=== PATIENT | male | born 1980 | race Caucasian/White ===

== ENCOUNTER 2018-08-11 20:52 | Emergency (ER) | payer SELFPAY ==
[2018-08-11] MEDS ORDERED: HYDROCODONE/APAP 7.5/325 MG TAB ONE (21:51)
--- NOTE | 2018-08-11 22:03 | RAD REPORT ---
EXAM DESCRIPTION: RAD - Wrist Right 3 View - 08/11/2018 9:35 pm CLINICAL HISTORY: Two day history of right wrist pain, no trauma history indicated COMPARISON: None. FINDINGS: No gross fracture deformity is seen. A amorphous shaped bone or soft tissue calcifications note along the dorsal margin of the wrist between the lunate and triquetrum bones. This appears to b e reactive calcification rather than an avulsion from the carpal bone. No calcifications in the trian gular fibrocartilage. There is no dislocation or periosteal reaction noted. No air or foreign body in the soft tissues. IMPRESSION: Calcifications along the dorsum of the wrist near the lunate and triquetrum bones noted. This appears to be reactive soft tissue calcification rather than bone avulsion. Findings are likely secondary to inflammatory degenerative process.
--- NOTE | 2018-08-11 22:33 | ER ---
Nurse's Notes [facility] Name: Nabila Fisher Age: 38 yrs Sex: Male : 1980 Arrival Date: 08/11/2018 Time: 20:57 Bed 9 Private MD: Diagnosis: Pain in right wrist Presentation: 08/11 20:58 Presenting complaint: Patient states: right wrist pain X2 days [employer]. Transition of care: ak1 patient was not received from another setting of care. Onset of symptoms is unknown. Risk Assessment: Do you want to hurt yourself or someone else? Patient reports no desire to harm self or others. Initial Sepsis Screen: Does the patient meet any 2 criteria? No. Patient's initial sepsis screen is negative. Does the patient have a suspected source of infection? No. Patient's initial sepsis screen is negative. Care prior to arrival: None. 20:58 Method Of Arrival: Ambulatory ak1 20:58 Acuity: KRISTEN 4 ak1 Triage Assessment: 20:59 General: Appears in no apparent distress. ak1 Historical: - Allergies: 20:59 No Known Allergies; ak1 - Home Meds: 20:59 None [Active]; ak1 - PMHx: 20:59 polycystic kidney; ak1 - PSHx: 20:59 None; ak1 - Immunization history:: Adult Immunizations unknown. - Social history:: Smoking status: Patient/guardian denies using tobacco. - Ebola Screening: : No symptoms or risks identified at this time. Screenin:00 Abuse screen: none noted. Nutritional screening: No deficits noted. Tuberculosis jl3 screening: No symptoms or risk factors identified. Fall Risk None identified. Assessment: 21:06 General: Appears uncomfortable, slender, Behavior is calm, cooperative, Reports Pt c/o jl3 pain to R. wrist >2 days. Denies trauma to wrist. States pain is 8/10, getting worse. Some inflammation noted to medial wrist. 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 Pain: Complains of pain in lateral aspect of right wrist, medial aspect of right wrist, dorsal aspect of right wrist, heel of right hand and palmar aspect of right wrist Pain currently is 8 out of 10 on a pain scale. Quality of pain is described as sharp, shooting. Cardiovascular: No deficits noted. Respiratory: No deficits noted. GI: No deficits noted. : No deficits noted. EENT: No deficits noted. Musculoskeletal: Reports pain in right hand. Vital Signs: 20:59 BP 151 / 85; Pulse 88; Resp 18; Temp 98; Pulse Ox 98% on R/A; Weight 63.5 kg (R); ak1 Height 5 ft. 8 in. (172.72 cm) (R); Pain 10/10; 23:01 BP 144 / 76; Pulse 80; Resp 16; Pulse Ox 99% ; Pain 0/10; jl3 20:59 Body Mass Index 21.29 (63.50 kg, 172.72 cm) ak1 ED Course: 20:57 Patient arrived in ED. ag3 20:58 Triage completed. ak1 20:59 Arm band placed on Patient placed in an exam room, on a stretcher, Patient notified of ak1 wait time. 21:02 Naomy Roa FNP-C is [facility]. kb 21:02 David Velásquez MD is Attending Physician. kb 21:03 Baljinder Wade, RN is Primary Nurse. jl3 21:30 X-ray completed. Portable x-ray completed in exam room. Patient tolerated procedure ag1 well. 21:33 Wrist Right 3 View XRAY In Process Unspecified. EDMS 23:01 Patient has correct armband on for positive identification. jl3 23:01 No provider procedures requiring assistance completed. Patient did not have IV access jl3 during this emergency room visit. Administered Medications: 21:43 Drug: [place] (7.5 mg-325 mg) 1 tabs Route: PO; jl3 22:03 Follow up: Response: No adverse reaction; Pain is decreased jl3 Outcome: 22:33 Discharge ordered by . kb 23:01 Discharged to home ambulatory, with family. jl3 23:01 Condition: stable 23:01 Discharge instructions given to patient, family, Prescriptions given X 2. 23:02 Patient left the ED. jl3 Signatures: Dispatcher [employer] EDMS Naomy Roa FNP-C FNP-Ckb Lowman, John, NURIS RN jl3 Janet Moore RN RN ak1 Dionna Gavin ag1 Yari Vela ag3
--- NOTE | 2018-08-11 22:34 | EDPHYS ---
Physician Documentation [facility] Name: Nabila Fisher Age: 38 yrs Sex: Male : 1980 Arrival Date: 08/11/2018 Time: 20:57 Bed 9 Private MD: ED Physician David Velásquez HPI: 08/11 22:29 This 38 yrs old Male presents to ER via Ambulatory with complaints of Wrist kb Pain. 22:29 The patient or guardian reports pain, swelling. The complaints affect the right wrist kb diffusely. Context: The problem was sustained at home, resulted from an unknown cause. Onset: The symptoms/episode began/occurred 2 day(s) ago. Modifying factors: The symptoms are alleviated by nothing, the symptoms are aggravated by nothing. Associated signs and symptoms: The patient has no apparent associated signs or symptoms. The patient has not experienced similar symptoms in the past. The patient has not recently seen a physician. Historical: - Allergies: 20:59 No Known Allergies; ak1 - Home Meds: 20:59 None [Active]; ak1 - PMHx: 20:59 polycystic kidney; ak1 - PSHx: 20:59 None; ak1 - Immunization history:: Adult Immunizations unknown. - Social history:: Smoking status: Patient/guardian denies using tobacco. - Ebola Screening: : No symptoms or risks identified at this time. ROS: 22:28 Constitutional: Negative for fever, chills, and weight loss, Cardiovascular: Negative kb for chest pain, palpitations, and edema, Respiratory: Negative for shortness of breath, cough, wheezing, and pleuritic chest pain, Abdomen/GI: Negative for abdominal pain, nausea, vomiting, diarrhea, and constipation, Skin: Negative for injury, rash, and discoloration, Neuro: Negative for headache, weakness, numbness, tingling, and seizure. 22:28 MS/extremity: Positive for pain, swelling, of the right wrist and right hand. Exam: 22:28 Constitutional: This is a well developed, well nourished patient who is awake, alert, kb and in no acute distress. Head/Face: Normocephalic, atraumatic. Chest/axilla: Normal chest wall appearance and motion. Nontender with no deformity. No lesions are appreciated. Cardiovascular: Regular rate and rhythm with a normal S1 and S2. No gallops, murmurs, or rubs. Normal PMI, no JVD. No pulse deficits. Respiratory: Lungs have equal breath sounds bilaterally, clear to auscultation and percussion. No rales, rhonchi or wheezes noted. No increased work of breathing, no retractions or nasal flaring. Abdomen/GI: Soft, non-tender, with normal bowel sounds. No distension or tympany. No guarding or rebound. No evidence of tenderness throughout. Back: No spinal tenderness. No costovertebral tenderness. Full range of motion. Skin: Warm, dry with normal turgor. Normal color with no rashes, no lesions, and no evidence of cellulitis. Neuro: Awake and alert, GCS 15, oriented to person, place, time, and situation. Cranial nerves II-XII grossly intact. Motor strength 5/5 in all extremities. Sensory grossly intact. Cerebellar exam normal. Normal gait. 22:28 Musculoskeletal/extremity: Extremities: grossly normal except: noted in the right wrist and right hand: pain, swelling, ROM: limited active range of motion due to pain, Circulation is intact in all extremities. Sensation intact. Vital Signs: 20:59 BP 151 / 85; Pulse 88; Resp 18; Temp 98; Pulse Ox 98% on R/A; Weight 63.5 kg (R); ak1 Height 5 ft. 8 in. (172.72 cm) (R); Pain 10/10; 23:01 BP 144 / 76; Pulse 80; Resp 16; Pulse Ox 99% ; Pain 0/10; jl3 20:59 Body Mass Index 21.29 (63.50 kg, 172.72 cm) ak1 MDM: 21:02 Patient medically screened. kb 22:28 Data reviewed: vital signs, nurses notes. Data interpreted: Pulse oximetry: on room air kb is 98 %. Interpretation: normal. Counseling: I had a detailed discussion with the patient and/or guardian regarding: the historical points, exam findings, and any diagnostic results supporting the discharge/admit diagnosis, radiology results, the need for outpatient follow up, a orthopedic surgeon, to return to the emergency department if symptoms worsen or persist or if there are any questions or concerns that arise at home. 08/11 21:17 Order name: Wrist Right 3 View XRAY; Complete Time: 22:05 kb Administered Medications: 21:43 Drug: [place] (7.5 mg-325 mg) 1 tabs Route: PO; jl3 22:03 Follow up: Response: No adverse reaction; Pain is decreased jl3 Disposition: 08/11/18 22:33 Discharged to Home. Impression: Pain in right wrist. - Condition is Stable. - Discharge Instructions: Wrist Pain, [id number]. - Prescriptions for Tramadol 50 mg Oral Tablet - take 1 tablet by ORAL route every 8 hours as needed; 12 tablet. Naprosyn 500 mg Oral Tablet - take 1 tablet by ORAL route 2 times per day take with food; 30 tablet. - Medication Reconciliation Form, Thank You Letter, Antibiotic Education, Prescription Opioid Use form. - Follow up: Emergency Department; When: As needed; Reason: Worsening of condition. Follow up: Private Physician; When: 2 - 3 days; Reason: Recheck today's complaints, Continuance of care, Re-evaluation by your physician. Addendum: 08/19/2018 03:26 Co-signature as Attending Physician, David Velásquez MD. g s Signatures: Dispatcher [employer] EDMS Naomy Roa, ELECTROTHERAPIST-C ELECTROTHERAPIST-Ckb Baljinder Wade RN RN jl3 Janet Moore RN RN ak1 David Velásquez MD MD Corrections: (The following items were deleted from the chart) 08/11 23:02 22:33 08/11/2018 22:33 Discharged to Home. Impression: Pain in right wrist. Condition jl3 is Stable. Forms are Medication Reconciliation Form, Thank You Letter, Antibiotic Education, Prescription Opioid Use. Follow up: Emergency Department; When: As needed; Reason: Worsening of condition. Follow up: Private Physician; When: 2 - 3 days; Reason: Recheck today's complaints, Continuance of care, Re-evaluation by your physician. kb
== END 2018-08-11 23:02 | disposition home or self-care (01) ==
LOC: ER 20:52
DX: M25.531 Pain in right wrist (principal)